=== PATIENT | male | born 1945 | race Caucasian/White ===

== ENCOUNTER 2016-11-18 11:13 | Emergency (ER) | payer OTHER, MEDICARE ==
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
[2016-11-18] MEDS ORDERED: RX INFO: IV CONTRAST WAS GIVEN 1 EACH MISC MISCELLANE PRN (11:40)
[2016-11-18] MEDS ORDERED: DIPH,PERTUS(ACELL)TETVAC-LF 0.5 ML VIAL IM ONE (11:45)
[2016-11-18 12:03] LABS: Anisocytosis Slight; CH 31.7; HCT 33.9 % (39.0-53.0); HGB 11.3 gm/dL (13.0-17.5); MCH 31.3 pg (25.0-35.0); MCHC 33.3 g/dL (31.0-37.0); MCV 93.9 fL (80.0-100.0); Mean Platelet Volume 9.4; Poikilocytosis Slight; RBC 3.61 m/uL (4.30-5.90); RDW 16.1 % (11.5-15.5); WBC 5.6 k/uL (3.8-10.6)
[2016-11-18 12:13] LABS: INR 1.1 (<1.1); Prothrombin Time 10.6 sec (9.0-12.0)
[2016-11-18 12:25] LABS: Partial Thromboplastin Time 21.1 sec (22.0-30.0)
[2016-11-18 12:26] LABS: Calcium 8.8 mg/dL (8.4-10.2); Potassium 4.1 mmol/L (3.5-5.1); Total Bilirubin 0.9 mg/dL (0.2-1.3); Total Protein 6.4 g/dL (6.3-8.2)
[2016-11-18] MEDS ORDERED: SODIUM CHLORIDE 0.9% 1,000 ML IV STA (12:40)
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
[2016-11-18] MEDS ORDERED: HYDROcodone/APAP 5-325MG 1 EACH TAB PO STA (14:02)
[2016-11-18 14:20] VITALS: BP 160/72; PULSE 95; RESP 18; TEMP 97
== END 2016-11-18 14:20 | disposition home or self-care (01) ==
LOC: EC 11:13
DX: S20.212A Contusion of left front wall of thorax, initial encounter (principal); S81.812A Laceration without foreign body, left lower leg, initial encounter; S51.012A Laceration without foreign body of left elbow, initial encounter; S51.011A Laceration without foreign body of right elbow, initial encounter; D69.6 Thrombocytopenia, unspecified; T45.525A Adverse effect of antithrombotic drugs, initial encounter; E11.9 Type 2 diabetes mellitus without complications; I10 Essential (primary) hypertension; E78.5 Hyperlipidemia, unspecified; F32.9 Major depressive disorder, single episode, unspecified; Z87.891 Personal history of nicotine dependence; Z86.73 Personal history of transient ischemic attack (TIA), and cerebral infarction without residual deficits; Z79.02 Long term (current) use of antithrombotics/antiplatelets; Z79.4 Long term (current) use of insulin; Z79.52 Long term (current) use of systemic steroids; Z79.899 Other long term (current) drug therapy; V48.6XXA Car passenger injured in noncollision transport accident in traffic accident, initial encounter; Y92.410 Unspecified street and highway as the place of occurrence of the external cause
CPT/HCPCS: 99285; 96360; 36415; 93005; 86900; 86901; 80053; 83735; 84484; 85027; 85610; 85730; 86850; 71010; 72129; 72125; 72132; 70450; 71260; 74177; Q9967

== ENCOUNTER → 2016-12-08 | Outpatient (CLI) | payer MEDICARE, BC ==
[2016-12-08 10:15] LABS: Anisocytosis Slight; Basophils % (A) 0 %; CH 30.8; CHCM 32.6; Eosinophils % (A) 1 %; HCT 34.8 % (39.0-53.0); HDW 3.83; Hypochromasia Slight; Luc % (Auto) 2; Lymphocytes # (A) 0.6 k/uL (1.0-4.8); Lymphocytes % (A) 10 %; MCH 29.9 pg (25.0-35.0); MCHC 31.5 g/dL (31.0-37.0); MCV 95.1 fL (80.0-100.0); Mean Platelet Volume 8.5; Monocytes # (A) 0.4 k/uL (0-1.0); Monocytes % (A) 7 %; Neutrophils # (A) 4.9 k/uL (1.3-7.7); Neutrophils % (A) 81 %; Poikilocytosis Slight; RBC 3.66 m/uL (4.30-5.90); WBC (Perox) 6.18
[2016-12-08 10:59] LABS: ALT 36 U/L (21-72); AST 22 U/L (17-59); Alkaline Phosphatase 155 U/L (38-126); Anion Gap 7 mmol/L; Blood Urea Nitrogen 24 mg/dL (9-20); Calcium 8.7 mg/dL (8.4-10.2); Carbon Dioxide 27 mmol/L (22-30); Chloride 110 mmol/L (98-107); Cholesterol 122 mg/dL (<200); Glucose 144 mg/dL (74-99); HDL Cholesterol 50 mg/dL (40-60); Non-African American GFR(MDRD) >60 (>60 ml/min/1.73 sqM); Potassium 4.5 mmol/L (3.5-5.1); Sodium 144 mmol/L (137-145); Total Bilirubin 0.5 mg/dL (0.2-1.3); Triglycerides 153 mg/dL (<150)
[2016-12-08 11:07] LABS: Prealbumin 17 mg/dL (18-36)
[2016-12-08 11:24] LABS: Hemoglobin A1C 6.7 % (4.2-6.1)
== END | disposition home or self-care (01) ==
LOC: LABWHC1 09:31
PROVIDERS: ATTEND Thoracic Surgery (Cardiothoracic Vascular Surgery)
DX: E11.40 Type 2 diabetes mellitus with diabetic neuropathy, unspecified (principal); N39.41 Urge incontinence; I87.2 Venous insufficiency (chronic) (peripheral); I25.10 Atherosclerotic heart disease of native coronary artery without angina pectoris; M79.604 Pain in right leg; M79.605 Pain in left leg
CPT/HCPCS: 36415; 80053; 80061; 83036; 83880; 84134; 84443; 85025

== ENCOUNTER 2017-01-31 13:41 | Emergency (ER) | payer MEDICARE, BC ==
[2017-01-31 13:55] VITALS: BP 125/61; PULSE 72; RESP 18; TEMP 97.5
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
== END 2017-01-31 14:53 | disposition home or self-care (01) ==
LOC: EC 13:41
DX: S41.122A Laceration with foreign body of left upper arm, initial encounter (principal); E11.9 Type 2 diabetes mellitus without complications; E78.5 Hyperlipidemia, unspecified; I10 Essential (primary) hypertension; F32.9 Major depressive disorder, single episode, unspecified; G70.00 Myasthenia gravis without (acute) exacerbation; M19.90 Unspecified osteoarthritis, unspecified site; D64.9 Anemia, unspecified; N40.0 Benign prostatic hyperplasia without lower urinary tract symptoms; Z87.891 Personal history of nicotine dependence; Z86.73 Personal history of transient ischemic attack (TIA), and cerebral infarction without residual deficits; Z79.84 Long term (current) use of oral hypoglycemic drugs; Z79.891 Long term (current) use of opiate analgesic; Z79.4 Long term (current) use of insulin; Z79.02 Long term (current) use of antithrombotics/antiplatelets; Z79.52 Long term (current) use of systemic steroids; Z79.899 Other long term (current) drug therapy; W45.8XXA Other foreign body or object entering through skin, initial encounter; Y93.89 Activity, other specified
CPT/HCPCS: 10120; 99282